=== PATIENT | female | born 1995 | race Caucasian/White ===

== ENCOUNTER 2020-12-17 21:41 | Emergency (ER) | payer BC, SELFPAY ==
--- NOTE | ~2020-12-17 | XR_ITS ---
EXAMINATION: XR CHEST CLINICAL INFORMATION: Dyspnea COMPARISON: None TECHNIQUE: 2 views of the chest were obtained. FINDINGS: Lungs are clear. No focal consolidation or mass. Normal pulmonary vascularity. No pleural effusion or pneumothorax. Normal heart size. No acute osseous abnormality. XR/XR chest 2V IMPRESSION: No acute pulmonary disease.
[2020-12-17 22:28] VITALS: BP 145/104; PULSE 88; RESP 18; TEMP 37.1; O2SAT 99; BMI 24.5
[2020-12-17 23:32] LABS: Influenza A PCR NEGATIVE (Negative); Influenza B PCR NEGATIVE (Negative); Resp Syncy Virus RNA Qual PCR NEGATIVE (Negative); SARS COV2 PCR INHOUSE NEGATIVE (Negative)
--- NOTE | 2020-12-18 00:17 | ED_ITS ---
HPI - URI/Sore Throat General Chief Complaint: Upper Respiratory Symptoms Stated Complaint: sob Time Seen by Provider: 12/17/20 23:02 Source: patient Mode of arrival: ambulatory History of Present Illness HPI Narrative: 25-year-old female presents with complaints of nasal congestion, postnasal drip, itchy face and increasing shortness of breath with chest tightness over the past couple of days. Patient states that she has been seen at the [facility] and informed that she should be evaluated for possible asthma. In addition patient describes a dry scratchy cough but denies any fever, chills or body aches. She has been tested twice for COVID-19 within the past 5 days and both times they were negative. Related Data Allergies Allergy/AdvReac Type Severity Reaction Status Date / Time amoxicillin Allergy Rash Verified 12/17/20 22:27 Review of Systems Review of Systems: Pertinent positives and negatives as stated in HPI 10 point review of systems is otherwise negative. PMFSH Past Medical History Source: nursing notes reviewed Medical History POTS (postural orthostatic tachycardia syndrome) Social History Social History Advance Directives: No Advance Directives Information Provided: Yes Physical Exam Vital Signs: Vital Signs: Last Vital Signs Temp 98.8 F 12/17/20 22:28 Pulse 92 12/18/20 01:02 Resp 18 12/18/20 01:02 BP 140/93 H 12/18/20 01:02 Pulse Ox 99 12/18/20 01:02 Body Mass Index 24.5 VITAL SIGNS: Reviewed. GENERAL: Well developed, well nourished, in no acute distress. HEAD: Normocephalic/atraumatic EYES: PERRLA, EOMI EARS: Ext canals without abnormality, TMs non-bulging and non-erythematous NOSE: Nares patent bilateral OROPHARYNX: no oral lesions noted, posterior pharynx clear with cobblestoning noted at the posterior pharynx NECK: Supple, no adenopathy LUNGS: Normal breath sounds with trace with expiratory wheeze noted without rhonchi, no tachypnea. SpO2<99> CARDIOVASCULAR: Regular rate and rhythm without noted murmurs ABDOMEN: Soft, non-tender, non-distended with bowel sounds. SKIN: Inspection of the skin reveals no rashes NEUROLOGIC: Alert and oriented x 4. Strength and sensation to light touch were grossly intact x 4. Course Course Course Narrative: 25-year-old female with history and clinical presentation consistent with allergies, postnasal drip and likely upper airway irritation versus asthma. Patient will be provided with 4 puffs of Ventolin and otherwise review of investigations are negative for acute findings. Patient will be discharged in stable condition with instructions to follow-up with her primary care provider with whom she has an appointment scheduled. On re-evaluation patient is feeling much better and will be discharged in stable condition. MDM - URI/Sore Throat Lab Data Labs: Lab Results 12/17/20 Range/Units 22:29 Coronavirus (PCR) NEGATIVE (Negative) Influenza Type A (PCR) NEGATIVE (Negative) Influenza Type B (PCR) NEGATIVE (Negative) RSV RNA Qual (PCR) NEGATIVE (Negative) Discharge Plan Discharge Clinical Impression: Allergic rhinitis with postnasal drip Patient Disposition: Home, Self-Care Instructions: Postnasal Drip (DC), Allergic Rhinitis (ED), Loratadine (By mouth), Fluticasone (Into the nose) Additional Instructions: 1. Recommend starting Flonase and Claritin for improved symptom relief 2. Albuterol, 2 puffs, every 4-6 hours, as needed for shortness of breath. 3. It is imperative that you follow-up with your primary care provider for appropriate evaluation for asthma. Return to the ER for acute worsening of symptoms. Referrals: Physician,Unknown [Primary Care Provider] - 2 days
[2020-12-18] MEDS: Albuterol Sulfate 90 MCG 8 GM INHALER 4 PUFF INHALE (00:44)
[2020-12-18 01:02] VITALS: BP 140/93; PULSE 92; RESP 18; O2SAT 99
== END 2020-12-18 01:59 | disposition home or self-care (01) ==
PROVIDERS: Emergency Provider Student in an Organized Health Care Education/Training Program
DX: J30.9 Allergic rhinitis, unspecified (principal); Z20.822 Contact with and (suspected) exposure to COVID-19
CPT/HCPCS: 0241U; 36415; 71046; 99283